=== PATIENT | female | born 1980 | race Two or more races ===

== ENCOUNTER → 2018-04-22 | Outpatient (CLI) | payer SELFPAY ==
--- NOTE | 2018-04-22 17:56 | RADIOLOGY REPORT (SQ) ---
EXAM DESCRIPTION: U/S OB 14+ TRNABD 1GES W/O DOP COMPLETED DATE/TIME: 04/22/2018 4:59 pm REASON FOR STUDY: Z34.82 ENCOUNTER FOR SUPRVSN OF NORMAL , SECOND TRIMESTER Z34.82 ENCOUNT ER FOR SUPRVSN OF NORMAL , SECOND TRI COMPARISON: None. TECHNIQUE: Static and Dynamic grayscale imaging performed of gravid uterus using transabdominal appr oach. Additional selected color Doppler and spectral images recorded. All stored on PACS. LIMITATIONS: None. FINDINGS: FETUSES SEEN:1 EGA: 15 weeks 0 days Calculated using BPD,FL,HC,AC documented on images. Clinical gestational age is 13 weeks 6 days. ALICIA: 10/14/2018 EFW: Too early to estimate grams PERCENTILE: Not applicable. Fetus less than or equal to 20 weeks gestation. REA: Adequate PLACENTA: Posterior GRADE: I PRESENTATION: Cephalic. ANATOMY: HEART RATE: 153 beats per minute. FOUR CHAMBER HEART: Not evaluated. THREE VESSEL CORD: Not evaluated. CORD INSERTION: Not evaluated. KIDNEYS AND BLADDER: Visualized. Appear normal. STOMACH: Not evaluated. SPINE: Not evaluated. BRAIN AND LATERAL VENTRICLES: Not evaluated. OTHER: No other significant finding. MATERNAL ADNEXA: Maternal ovaries not visualized. CERVICAL LENGTH: 4.2 cm. Closed. OTHER: No other significant finding. IMPRESSION: LIVING INTRAUTERINE . ESTIMATED GESTATIONAL AGE 15 weeks 0 days. No visualized anomalies. Complete anatomical survey was not performed. Trimester of : Second trimester - 13 weeks 1 day to 27 weeks 6 days. TECHNICAL DOCUMENTATION: JOB ID: [id number] [employer]- All Rights Reserved Reading location - IP/workstation name: [email or web address]
== END ==
LOC: RAD 15:41
PROVIDERS: ATTEND Nurse Practitioner
DX: Z34.82 Encounter for supervision of other normal pregnancy, second trimester (principal)
CPT/HCPCS: 76805